=== PATIENT | female | born 1935 | race Caucasian/White ===

== ENCOUNTER → 2018-12-22 | Outpatient (CLI) | payer MEDICARE ==
--- NOTE | 2018-12-22 15:34 | Diagnostic Imaging Report ---
PROCEDURE: X-RAY MODIFIED BARIUM SWALLOW COMPARISON: None. INDICATION: Dysphasia Radiation Details: Fluoroscopy time: 1.4 minutes Cumulative dose: 5.8 mGy DISCUSSION: Fluoroscopic examination was performed in conjunction with speech pathology during swallowing a variety of thin and thick liquid consistencies. Provided images demonstrate laryngeal penetration but no aspiration. CONCLUSION: Modified barium swallow demonstrating laryngeal penetration but no aspiration. Please refer to the speech pathology report for further details. Signed by: Ester Melendez MD on 12/22/2018 3:30 PM
== END ==
LOC: DX 11:55
PROVIDERS: ATTEND Otolaryngology
DX: R13.13 Dysphagia, pharyngeal phase (principal)
CPT/HCPCS: 74230

== ENCOUNTER 2019-01-11 13:00 | Outpatient (RCR) | payer MEDICARE ==
--- NOTE | 2019-01-03 14:20 | NUR ---
Patient Name: Karis CantuB: 1935 Age/Sex: 83/femaleOrdering Physician: Misael Davison MD Clinical Swallow Evaluation/Initial Treatment Session Patient is an 83 year old female with diagnosis of dysphagia and choking. Pt reported several month h/o difficulty swallowing liquids. Per report, she often chokes when drinking and even on her saliva. No report of recent PNA, URI, or bronchitis. Pt with h/o CVA X 2. Pt known to this service from dysphagia intervention in 2013. Pt discharged 05/30 secondary to all goals met with functional swallow. Patient completed a modified barium swallow (MBS) study on 12/22/2018. Pt presented with mild oral dysphagia c/b decreased manipulation and control of bolus. Pt presented with mild pharyngeal dysphagia c/b consistent premature spillage over the base of tongue, consistent laryngeal penetration, and consistent pharyngeal residue after the swallow. Dysphagia was judged to be secondary to decreased hyolaryngeal excursion, decreased coordination of the swallow, and decreased pharyngeal constriction. While the patient did not aspirate during the exam, it is likely that, during normal eating environments, material collects in the laryngeal vestibule and eventually spills into the airway, causing the choking episodes pt reports. Recommendation was made for dysphagia therapy to increase strength and coordination of swallow. Patient was seen today in the outpatient clinic for initial treatment of Neuromuscular Electrical Stimulation (NMES) with VitalStim Therapy and traditional dysphagia therapy with pharyngeal exercises. Pt was seen with no family present. Oral motor exam revealed function that was functional yet decreased ROM/strength with lips and tongue. Patient tolerates room air. Hearing appeared to be WFL. Speech and language skills were functional. Provided extensive education re: need for therapy, purpose of exercises and NMES, and future plan of care. Pt indicated understanding. Pt was given water and hard candy. Pt was instructed to take small sips and swallow hard, feeling all the muscles in her throat contract. Placement 3b was used to target the mylohyoid muscle, the anterior belly of the digastric muscle, the sternohyoid muscle, the omohyoid muscle, the geniohyoid muscle, and the middle pharyngeal constrictors. Channel 1 of the electrodes was aligned horizontally just above the hyoid bone and channel 2 of the electrodes was aligned horizontally at the level of the thyroid notch. This placement was used to improve base of tongue strength, pharyngeal constriction, and UES function. Pt initially tolerated 6.0 mA, but as the session progressed pt tolerated 9.5 mA. Pt received 45 minutes of stimulation. Cough noted X 0, throat clear X 0. During NMES an exercise program was presented, demonstrated, and discussed. Pt completed the exercises with minimal assistance. A home program was assigned. Pt verbalized understanding of the home exercise program. Education provided as indicated. All questions were answered. Pt indicated that attending therapy 3x/week would be convenient. Impressions: Pt tolerated initial session of NMES well. She continues to report and demonstrate s/s of aspiration during meals which significantly interferes with his quality of life. Pt is an excellent candidate for dysphagia exercises and NMES for improvement of strength and coordination of swallow. Recommendations: 1.Dysphagia therapy to include traditional exercises and NMES 3X/week for 4 weeks for a total of 12 treatment sessions 2.Home exercise program 3.Repeat MBS in 4-6 weeks with new goals to be determined at that time Senior Living Goal: Pt will tolerate least restrictive diet without s/s of aspiration as judged by an objective evaluation. Short Term Goals: 1.Pt will complete 3 repetitions of a set of dysphagia exercises to improve laryngeal elevation, base of tongue retraction, and laryngeal closure, 10 repetitions per exercise, with minimal cues. 2.Pt will tolerate NMES for 45 60 minutes with no clinical s/s of aspiration to improve strength of pharyngeal constrictors, hyolaryngeal excursion, and safety with po intake. 3.Pt will complete home dysphagia exercise program targeting laryngeal elevation, base of tongue strength, and cricopharyngeal function independently. 4.Pt will follow aspiration precautions with independence. 5.Pt will participate in a repeat Modified Barium Swallow study to objectively re-assess swallow safety and function and determine safest diet. Veronica Pedraza M.S. CCC-ICE GR[employer]ER Date of Session: 01/03/19 Dysphagia Evaluation and Treatment X 50 minutes Physicians signature below certifies medical necessity for these skilled interventions Physician SignatureDate NOMS Rating for Swallowing: Level 6
== END 2019-01-15 ==
LOC: ST 13:00
PROVIDERS: ATTEND Otolaryngology
DX: R13.13 Dysphagia, pharyngeal phase (principal)